=== PATIENT | male | born 1960 | race Caucasian/White ===

== ENCOUNTER 2020-04-02 02:44 | Emergency (ER) | payer MEDICAID, OTHER ==
[~2020-04-02] VITALS: Ht 172.7 cm; Wt 74.8 kg
[2020-04-02] MEDS ORDERED: CLONAZEPAM 0.5 MG TABLET PO ONE (03:15)
[2020-04-02 03:19] VITALS: BP 135/100
[2020-04-02] MEDS ORDERED: CLONAZEPAM 1 MG TABLET ONE (03:19)
--- NOTE | 2020-04-02 03:19 | NUR ---
Patient discharged to home in stable condition. Written and verbal after care instructions given. Patient verbalizes understanding of instructions. Stressed follow up or return to ER for worsening s/s. Patient's friend driving him home
== END 2020-04-02 03:20 | disposition home or self-care (01) ==
LOC: ER 02:51
DX: Z76.0 Encounter for issue of repeat prescription (principal); F41.9 Anxiety disorder, unspecified
CPT/HCPCS: A4663

== ENCOUNTER 2020-04-22 04:37 | Emergency (ER) | payer MEDICAID ==
[~2020-04-22] VITALS: Ht 172.7 cm; Wt 74.8 kg
--- NOTE | 2020-04-22 04:50 | NUR ---
at bedside explaining medication klonopin , effects , and smoking cessation
--- NOTE | 2020-04-22 04:50 | NUR ---
seen by dr espinal for medical screening
--- NOTE | 2020-04-22 05:08 | NUR ---
awake , able to follow command, anxious
--- NOTE | 2020-04-22 05:19 | NUR ---
discharge , ambulatory , steady gait , prescription given and explained and verbalizes understanding
[2020-04-22 05:22] VITALS: BP 142/49
== END 2020-04-22 05:23 | disposition home or self-care (01) ==
LOC: ER 04:42
DX: Z76.0 Encounter for issue of repeat prescription (principal); F41.9 Anxiety disorder, unspecified; F17.211 Nicotine dependence, cigarettes, in remission
CPT/HCPCS: A4663